=== PATIENT | male | born 1935 | race Caucasian/White ===

== ENCOUNTER 2017-09-05 14:16 | Emergency (ER) | payer MEDICARE, BC ==
[~2017-09-05] VITALS: Ht 185.4 cm; Wt 93.2 kg
[2017-09-05 14:44] VITALS: Ht 185.4 cm; Wt 93.2 kg
[2017-09-05] MEDS ORDERED: KEPPRA250 MG PO (14:47)
[2017-09-05] MEDS ORDERED: TYLENOL W/CODEI1 TAB PO (14:48)
[2017-09-05] MEDS ORDERED: PACERONE100 MG PO (14:49)
[2017-09-05] MEDS ORDERED: ADVAIR 250/501 DISK INH (14:49)
[2017-09-05] MEDS ORDERED: ELIQUIS2.5 MG PO (14:50)
[2017-09-05] MEDS ORDERED: COMBIVENT RESPIM4 GM INH (14:50)
[2017-09-05] MEDS ORDERED: LISINOPRIL5 MG PO (14:51)
[2017-09-05] MEDS ORDERED: LASIX40 MG (14:51)
[2017-09-05] MEDS ORDERED: SINGULAIR10 MG PO (14:52)
[2017-09-05] MEDS ORDERED: TOPROL XL100 MG PO (14:52)
[2017-09-05] MEDS ORDERED: MUCINEX1200 MG/BO PO (14:53)
[2017-09-05] MEDS ORDERED: ALDACTONE25 MG PO (14:54)
[2017-09-05] MEDS ORDERED: POTASSIUM CHLO10 ME1 PO (14:54)
[2017-09-05] MEDS ORDERED: PRAVACHOL40 MG PO (14:54)
[2017-09-05] MEDS ORDERED: FLOMAX0.4 MG PO (14:55)
[2017-09-05 15:22] LABS: BASOPHILS 0.4 % (0-2); EOSINOPHILS 3.3 % (0-7); HEMATOCRIT 41.6 % (42.0-54.0); HEMOGLOBIN 14.6 g/dL (13.5-17.5); IMMATURE GRANULOCYTES 0.3 % (0-5); LYMPHOCYTES 23.3 % (15-50); MCH 32.7 pg (26.0-34.0); MCHC 35.1 g/dL (31.0-37.0); MCV 93.1 fL (80.0-100.0); MEAN PLATELET VOLUME 9.4 fL (7.4-10.4); MONOCYTES 10.5 % (2-11); NEUTROPHILS 62.2 % (40-80); PLATELET COUNT 167 10x3/uL (130-400); RBC 4.47 10x6/uL (4.20-6.10); RDW 13.5 % (11.5-14.5); WBC 7.6 10x3/uL (4.8-10.8)
[2017-09-05 15:35] LABS: ALBUMIN 3.6 g/dL (3.4-5.0); ANION GAP 12.3 mmol/L (8-16); BILIRUBIN - TOTAL 0.48 mg/dL (0.2-1.3); CALCIUM 8.6 mg/dL (8.5-10.1); CARBON DIOXIDE 28.3 mmol/L (21.0-32.0); CREATININE - SERUM 1.1 mg/dL (0.6-1.3); POTASSIUM - SERUM 4.6 mmol/L (3.5-5.1)
[2017-09-05 17:46] VITALS: BP 110/68
== END 2017-09-05 17:47 | disposition home or self-care (01) ==
LOC: D.ER 14:16
PROVIDERS: Emergency Medicine
DX: Z91.14 Patient's other noncompliance with medication regimen (principal); D32.9 Benign neoplasm of meninges, unspecified; G40.909 Epilepsy, unspecified, not intractable, without status epilepticus; I10 Essential (primary) hypertension